=== PATIENT | female | born 1960 | race Caucasian/White ===

== ENCOUNTER 2022-11-05 11:52 | Emergency (ER) | payer OTHER ==
[2022-11-05 13:01] LABS: Absolute Lymphocytes (CBC) 2.7 K/uL (0.7-4.9); Hematocrit 39.3 % (36.0-45.0); Lymphocytes % 23.2 % (15.3-44.8); MCV 96.6 fL (80-100); MPV 7.2 fL (7.6-11.3); RBC Red Blood Cell Count 4.07 M/uL (3.86-4.86)
[2022-11-05] MEDS ORDERED: MORPHINE 4 MG/ML SYR ONE ×2 (13:01→14:05)
[2022-11-05] MEDS ORDERED: ONDANSETRON 4 MG/2 ML VIAL ONE (13:01)
[2022-11-05] MEDS ORDERED: NA CHLORIDE 0.9% 1,000 ML ONE (13:01)
[2022-11-05 13:19] LABS: AST/SGOT 13 U/L (15-37); Albumin 3.5 g/dL (3.4-5.0); Alkaline Phosphatase 99 U/L (45-117); BUN Blood Urea Nitrogen 16 mg/dL (7-18); Bicarbonate 21 mEq/L (21-32); Bilirubin Total 0.3 mg/dL (0.2-1.0); Glomerular Filtration Rate 56 ml/min (=/>90); Glucose Level 94 mg/dL (74-106); Lipase 39 U/L (13-75); Potassium 3.6 mEq/L (3.5-5.1); Protein, Total 7.6 g/dL (6.4-8.2); Sodium Level 133 mEq/L (136-145); Troponin High Sensitivity 12.3 pg/mL (<58.9)
[2022-11-05 13:21] LABS: ALT/SGPT < 10 U/L (13-56)
--- NOTE | 2022-11-05 13:53 | RAD REPORT ---
EXAM DESCRIPTION: RAD - Chest Single View - 11/05/2022 1:46 pm CLINICAL HISTORY: No comparisons COMPARISON: None. TECHNIQUE: AP portable view of the chest was obtained . FINDINGS: Lungs are clear. Heart and vasculature are normal. No sizable pleural effusion and no pneu mothorax. No gross bony abnormality seen. IMPRESSION: No acute cardiopulmonary process.
--- NOTE | 2022-11-05 14:18 | RAD REPORT ---
EXAM DESCRIPTION: CT - Abdomen Pelvis W Contrast - 11/05/2022 1:37 pm CLINICAL HISTORY: upper abd pain, vomiting, constipation COMPARISON: No comparisons TECHNIQUE: Thin cut axial CT imaging of the abdomen and pelvis was performed following intravenous a dministration of 95 mL Isovue 300. Multiplanar reformats were generated and reviewed. All CT scans are performed using dose optimization technique as appropriate and may include automated exposure control or mA/KV adjustment according to patient size. FINDINGS: Small triangular pleural-based focus of opacification along the posterior right lower lobe , could reflect atelectasis. No other suspicious findings in the lung bases. The liver, spleen, and pancreas show no suspicious findings. Gallbladder surgically removed. Common b ile duct and central intrahepatic biliary radicles are mildly patulous, which probably relates to pos tcholecystectomy status. Symmetric renal function is seen with no hydronephrosis or suspicious renal mass. No dilated bowel loops or bowel wall thickening. Colonic diverticulosis. Segmental fluid opacificatio n of small bowel loops, as well as the ascending colon, nonspecific but could relate to diarrheal sta te. No free air, free fluid or inflammatory stranding. No hernia, mass or bulky lymphadenopathy. The urinary bladder is without significant finding. No suspicious bony findings. Schmorl's node formation with mild superior endplate compression deformi ty at L1 IMPRESSION: Segmental fluid opacification of small bowel loops and the ascending colon, nonspecific, but could relate to diarrheal state. No other acute findings. Mildly patulous appearance of the common bile duct and central intrahepatic biliary radicals, could r elate to postcholecystectomy status.
[2022-11-05 14:23] LABS: Specific Gravity 1.013 (1.005-1.030); Urine Bacteria <20 /HPF (<20); Urine Bilirubin NEGATIVE (Negative); Urine Blood Negative (Negative); Urine Clarity Clear (Clear); Urine Color Light-Yellow (Yellow); Urine Glucose NEGATIVE (Negative); Urine Mucus Slight /HPF (None Seen); Urine Protein TRACE (Negative); Urine RBC <5 /HPF (None Seen); Urine Urobilinogen Normal (Normal)
--- NOTE | 2022-11-05 14:33 | ER ---
Nurse's Notes [facility] Name: Alejandra Gomez Age: 62 yrs Sex: Female : 1960 Arrival Date: 11/05/2022 Time: 11:52 Bed 18 Private MD: Diagnosis: Abdominal pain, unspecified;Nausea with vomiting, unspecified;UTI/ Urinary tract infection, site not specified Presentation: 11/05 12:36 Chief complaint: EMS states: "Abdominal pain x 7 days, vomited at 0800 x1, Last BM 5 mb9 days ago.". Coronavirus screen: Vaccine status: Patient reports receiving the 2nd dose of the covid vaccine. Ebola Screen: No symptoms or risks identified at this time. Initial Sepsis Screen: Does the patient meet any 2 criteria? HR > 90 bpm. Does the patient have a suspected source of infection? No. Patient's initial sepsis screen is negative. Risk Assessment: Do you want to hurt yourself or someone else? Patient reports no desire to harm self or others. Onset of symptoms was 2022. 12:36 Acuity: NAVARRO 3 mb9 12:36 Method Of Arrival: EMS: [facility] mb9 Historical: - Allergies: 12:37 PENICILLINS; mb9 12:37 Latex, Natural Rubber; mb9 - PMHx: 12:37 Hypertensive disorder; mb9 - PSHx: 12:37 Appendectomy; Cholecystectomy; Total abdominal hysterectomy; mb9 - Immunization history:: Adult Immunizations up to date. - Social history:: Smoking status: Patient reports the use of cigarette tobacco products, smokes one-half pack cigarettes per day. - Family history:: not pertinent. - Hospitalizations: : No recent hospitalization is reported. Screenin:03 [facility] ED Fall Risk Assessment (Adult) History of falling in the last 3 months, db including since admission No falls in past 3 months (0 pts) Confusion or Disorientation No (0 pts) Intoxicated or Sedated No (0 pts) Impaired Gait No (0 pts) Mobility Assist Device Used No (0 pt) Altered Elimination No (0 pt) Score/Fall Risk Level 0 - 2 = Low Risk Oriented to surroundings, Maintained a safe environment. Abuse screen: Denies threats or abuse. Denies injuries from another. Nutritional screening: No deficits noted. Tuberculosis screening: No symptoms or risk factors identified. Assessment: 12:58 Reassessment: Patient appears in no apparent distress at this time. Patient and/or db family updated on plan of care and expected duration. Pain level reassessed. Patient is alert, oriented x 3, equal unlabored respirations, skin warm/dry/pink. general abdominal pain x 7 days worse today. General: Appears in no apparent distress. uncomfortable, Behavior is cooperative, anxious. Pain: Complains of pain in abdomen. Neuro: Level of Consciousness is awake, alert, obeys commands, Oriented to person, place, time. GI: Bowel sounds present X 4 quads. Abd is soft. 14:02 Reassessment: patient states pain returned. Notified Dr. Berry and new order for db morphine received. patient medicated see AUG. Vital Signs: 12:36 BP 172 / 83; Pulse 98; Resp 18; Temp 98.2; Pulse Ox 100% on R/A; Weight 49.9 kg; Height mb9 4 ft. 11 in. ; 13:00 BP 172 / 83; Pulse 80; Resp 16; Pulse Ox 100% on R/A; db 13:00 BP 143 / 103; Pulse 77; Resp 16; Pulse Ox 100% on R/A; db 14:48 BP 168 / 84; Pulse 74; Resp 16; Pulse Ox 98% on R/A; mb9 12:36 Body Mass Index 22.22 (49.90 kg, 149.86 cm) mb9 ED Course: 12:23 Patient arrived in ED. kb3 12:29 Alexi Cleveland MD is Attending Physician. rn 12:36 Arm band placed on. mb9 12:37 Triage completed. mb9 12:40 Charu Soto, RN is Primary Nurse. db 12:50 Inserted saline lock: 22 gauge in right antecubital area, using aseptic technique. db Blood collected. 13:39 CT Abd/Pelvis - IV Contrast Only In Process Unspecified. EDMS 13:47 XRAY Chest (1 view) In Process Unspecified. EDMS 14:03 Patient has correct armband on for positive identification. Bed in low position. Call db light in reach. Side rails up X 1. 14:48 No provider procedures requiring assistance completed. IV discontinued, intact, mb9 bleeding controlled, No redness/swelling at site. Pressure dressing applied. Administered Medications: 12:57 Drug: NS 0.9% IV 1000 ml Route: IV; Rate: 1 bolus; Site: right antecubital; db 14:40 Follow up: Response: No adverse reaction; IV Status: Completed infusion; IV Intake: db 1000ml 12:58 Drug: Ondansetron IVP 4 mg Route: IVP; Site: right antecubital; db 14:00 Follow up: Response: No adverse reaction db 12:58 Drug: morphine IVP or IV 4 mg Route: IVP; Infused Over: 4 mins; Site: right antecubital;db 13:55 Follow up: Response: No adverse reaction db 13:58 Drug: morphine IVP or IV 4 mg Route: IVP; Infused Over: 4 mins; Site: right antecubital;db 14:48 Follow up: Response: No adverse reaction db 14:44 Drug: Ciprofloxacin PO 500 mg Route: PO; mb9 14:48 Follow up: Response: No adverse reaction db 14:44 Drug: metroNIDAZOLE PO 500 mg Route: PO; mb9 14:48 Follow up: Response: No adverse reaction db Medication: 14:44 VIS not applicable for this client. db Intake: 14:40 IV: 1000ml; Total: 1000ml. db Outcome: 14:32 Discharge ordered by . rn 14:48 Discharged to home ambulatory. mb9 14:48 Condition: stable 14:48 Discharge instructions given to patient, Instructed on discharge instructions, follow up and referral plans. Demonstrated understanding of instructions, follow-up care, medications, Prescriptions given X 3. 14:48 Patient left the ED. mb9 Signatures: Dispatcher [employer] EDMS Alexi Cleveland MD MD rn Bradberry, Kelly RN RN kb3 Charu Soto RN RN db Breneman, Mary Beth, RN RN mb9
--- NOTE | 2022-11-05 14:33 | EDPHYS ---
Physician Documentation [facility] Name: Alejandra Gomez Age: 62 yrs Sex: Female : 1960 Arrival Date: 11/05/2022 Time: 11:52 Bed 18 Private MD: ED Physician Alexi Cleveland HPI: 11/05 13:38 This 62 yrs old Female presents to ER via EMS with complaints of Abdominal Pain, rn Constipation. 13:38 The patient presents with abdominal pain that is diffuse. Onset: The symptoms/episode rn began/occurred 1 week(s) ago. The symptoms do not radiate. Associated signs and symptoms: Pertinent positives: nausea and vomiting, constipation, Pertinent negatives: blood in stools, fever. The symptoms are described as crampy. Modifying factors: The symptoms are alleviated by nothing, the symptoms are aggravated by touching the area, vomiting. Severity of pain: At its worst the pain was moderate in the emergency department the pain is unchanged. The patient has not experienced similar symptoms in the past. The patient has not recently seen a physician. Pt reports abd pain, constipation, vomiting for 1 week. Denies trauma. Reports upper abd pain and describes it to feel similar to when needed her gallbladder removed. . Historical: - Allergies: 12:37 PENICILLINS; mb9 12:37 Latex, Natural Rubber; mb9 - PMHx: 12:37 Hypertensive disorder; mb9 - PSHx: 12:37 Appendectomy; Cholecystectomy; Total abdominal hysterectomy; mb9 - Immunization history:: Adult Immunizations up to date. - Social history:: Smoking status: Patient reports the use of cigarette tobacco products, smokes one-half pack cigarettes per day. - Family history:: not pertinent. - Hospitalizations: : No recent hospitalization is reported. ROS: 13:38 Constitutional: Negative for fever, chills, and weight loss, Neck: Negative for injury, rn pain, and swelling, Cardiovascular: Negative for chest pain, palpitations, and edema, Respiratory: Negative for shortness of breath, cough, wheezing, and pleuritic chest pain, Abdomen/GI: Negative for diarrhea Back: Negative for injury and pain, MS/Extremity: Negative for injury and deformity, Skin: Negative for injury, rash, and discoloration, Neuro: Negative for headache, weakness, numbness, tingling, and seizure. Exam: 13:38 Constitutional: This is a well developed, well nourished patient who is awake, alert, rn appears uncomfortable Cardiovascular: Regular rate and rhythm. No pulse deficits. Respiratory: No increased work of breathing, no retractions or nasal flaring. Abdomen/GI: soft, + mid abd tenderness, no distension Skin: Warm, dry MS/ Extremity: Pulses equal, no cyanosis. Neuro: Awake and alert, GCS 15 13:47 ECG was reviewed by the Attending Physician. rn Vital Signs: 12:36 BP 172 / 83; Pulse 98; Resp 18; Temp 98.2; Pulse Ox 100% on R/A; Weight 49.9 kg; Height mb9 4 ft. 11 in. ; 13:00 BP 172 / 83; Pulse 80; Resp 16; Pulse Ox 100% on R/A; db 13:00 BP 143 / 103; Pulse 77; Resp 16; Pulse Ox 100% on R/A; db 14:48 BP 168 / 84; Pulse 74; Resp 16; Pulse Ox 98% on R/A; mb9 12:36 Body Mass Index 22.22 (49.90 kg, 149.86 cm) mb9 MDM: 12:29 Patient medically screened. rn 14:25 Differential diagnosis: bowel obstruction, diverticulitis, gastritis, non-specific abd rn pain, pancreatitis, Pyelonephritis, Ureterolithiasis, urinary tract infection. Data reviewed: vital signs, nurses notes, lab test result(s), radiologic studies, CT scan, and as a result, I will discharge patient. Counseling: I had a detailed discussion with the patient and/or guardian regarding: the historical points, exam findings, and any diagnostic results supporting the discharge/admit diagnosis, lab results, radiology results, the need for outpatient follow up, to return to the emergency department if symptoms worsen or persist or if there are any questions or concerns that arise at home. 14:32 Special discussion: I discussed with the patient/guardian in detail that at this point rn there is no indication for admission to the hospital. It is understood, however, that if the symptoms persist or worsen the patient needs to return immediately for re-evaluation. 11/05 12:34 Order name: CBC with Diff; Complete Time: 13:38 rn 11/05 12:34 Order name: CMP; Complete Time: 13:38 rn 11/05 12:34 Order name: Lipase; Complete Time: 13:38 rn 11/05 12:34 Order name: Urinalysis w/ reflexes; Complete Time: 14:24 rn 11/05 12:34 Order name: Flu; Complete Time: 13:38 rn 11/05 12:34 Order name: Troponin High Sensitivity; Complete Time: 13:38 rn 11/05 12:34 Order name: CT Abd/Pelvis - IV Contrast Only; Complete Time: 14:19 rn 11/05 12:34 Order name: XRAY Chest (1 view); Complete Time: 13:57 rn 11/05 12:34 Order name: EKG; Complete Time: 12:35 rn 11/05 12:34 Order name: IV Saline Lock; Complete Time: 12:58 rn 11/05 12:34 Order name: Labs collected and sent; Complete Time: 12:58 rn 11/05 12:34 Order name: EKG - Nurse/Tech; Complete Time: 13:28 rn EC:47 Rate is 69 beats/min. Rhythm is regular. QRS [place] is Normal. [place] interval is normal. QRS rn interval is normal. QT interval is normal. No Q waves. T waves are Normal. No ST changes noted. Clinical impression: Normal ECG. Interpreted by me. Reviewed by me. Administered Medications: 12:57 Drug: NS 0.9% IV 1000 ml Route: IV; Rate: 1 bolus; Site: right antecubital; db 14:40 Follow up: Response: No adverse reaction; IV Status: Completed infusion; IV Intake: db 1000ml 12:58 Drug: Ondansetron IVP 4 mg Route: IVP; Site: right antecubital; db 14:00 Follow up: Response: No adverse reaction db 12:58 Drug: morphine IVP or IV 4 mg Route: IVP; Infused Over: 4 mins; Site: right antecubital;db 13:55 Follow up: Response: No adverse reaction db 13:58 Drug: morphine IVP or IV 4 mg Route: IVP; Infused Over: 4 mins; Site: right antecubital;db 14:48 Follow up: Response: No adverse reaction db 14:44 Drug: Ciprofloxacin PO 500 mg Route: PO; mb9 14:48 Follow up: Response: No adverse reaction db 14:44 Drug: metroNIDAZOLE PO 500 mg Route: PO; mb9 14:48 Follow up: Response: No adverse reaction db Disposition Summary: 11/05/22 14:32 Discharge Ordered Location: Home rn Problem: new rn Symptoms: have improved rn Condition: Stable rn Diagnosis - Abdominal pain, unspecified rn - Nausea with vomiting, unspecified rn - UTI/ Urinary tract infection, site not specified rn Followup: rn - With: Private Physician - When: As needed - Reason: Recheck today's complaints, Re-evaluation by your physician Discharge Instructions: - Discharge Summary Sheet rn - Abdominal Pain, Adult rn - Nausea and Vomiting, Adult rn - Urinary Tract Infection, Adult rn Forms: - Medication Reconciliation Form rn - Thank You Letter rn - Antibiotic carnival worker - Prescription Opioid Use rn Prescriptions: - ondansetron 4 mg Oral Tablet,disintegrating - take 1 tablet by ORAL route every 8-10 hours As needed as needed for nausea and rn vomiting; 15 tablet; Refills: 0, Product Selection Permitted - Flagyl 500 mg Oral Tablet - take 1 tablet by ORAL route every 8 hours for 10 days; 30 tablet; Refills: 0, rn Product Selection Permitted - Cipro 500 mg Oral Tablet - take 1 tablet by ORAL route every 12 hours for 10 days; 20 tablet; Refills: 0, rn Product Selection Permitted Signatures: Dispatcher [employer] EDAlexi Herrmann MD MD rn Benton, Danielle RN RN Lynda King RN RN mb9
[2022-11-05] MEDS ORDERED: metroNIDAZOLE 500 MG TABLET ONE (14:48)
[2022-11-05] MEDS ORDERED: CIPROFLOXACIN HCL 500 MG TAB ONE (14:49)
[2022-11-05 15:17] VITALS: TEMP 98.2
[2022-11-05 15:21] VITALS: BP 168/84; O2SAT 98
--- NOTE | 2022-11-07 07:30 | EKG ---
Test Date: 2022-11-05 Test Time: 13:07:52 Bioinformatician: KSENIA MEASUREMENT RESULTS: Intervals: Rate: 69 NM: 146 QRSD: 84 QT: 400 QTc: 428 [place]: P: 42 NM: 146 QRS: -32 T: 55 INTERPRETIVE STATEMENTS: Normal sinus rhythm Left axis deviation Abnormal ECG No previous ECG available for comparison Electronically Signed On 11-07-22 07:25:43 CDT by Edward Hidalgo
== END 2022-11-05 14:48 | disposition home or self-care (01) ==
LOC: EDBD 11:52 → ER 11:52
DX: N39.0 Urinary tract infection, site not specified (principal); R11.2 Nausea with vomiting, unspecified; I10 Essential (primary) hypertension; F17.210 Nicotine dependence, cigarettes, uncomplicated; Z88.0 Allergy status to penicillin; Z91.040 Latex allergy status; Z91.048 Other nonmedicinal substance allergy status
CPT/HCPCS: 96361; 93005; 85025; 81001; 36415; 84484; 83690; 80053; 87804 ×2; 74177; 71045; 96375; 96374; 99284; Q9967; J2405; J7030

== ENCOUNTER 2022-11-21 09:59 | Emergency (ER) | payer OTHER ==
--- OUTSIDE RECORDS SUMMARY | 2022-11-21 10:02 | XMS REPORT | Continuity of Care Document ---
:1960 Author Organization [facility] t Address [address] [facility]. [address] [place] [address] Care Team Providers Name Role Phone Unavailable Unavailable Unavailable Problems This patient has no known problems. Allergies, Adverse Reactions, Alerts This patient has no known allergies or adverse reactions. Medications This patient has no known medications. Procedures This patient has no known procedures. Encounters Start End Encounter Admission Attending Care Care Encounter Source Date/Time Date/Time Type Type Clinicians Facility Department ID 2022-07-14 2022-07-14 Outpatient [facility] [id number] 11:08:15 11:08:15 [id number] [facility] 2022-04-20 2022-04-20 Outpatient [facility] [id number] [place] 10:40:09 10:40:09 [id number] [facility] 2022-04-16 2022-04-16 Outpatient [facility] [id number] [place] 11:44:55 11:44:55 [id number] [facility] 2022-03-31 2022-03-31 Outpatient [facility] [id number] 15:17:51 15:17:51 [facility] Results Test Description Test Time Test Comments Results Result Comments Source OCCULT BLD,FECAL,IMMUNOASSAY DIAG 2022-07-23 11:08:20 Test Item Value Reference Range Interpretation Comme nts OCCULT BLD, FECAL (test NEGATIVE NEGATIVE [facility] has important pathology staff code = 03615) changes effect clay 08/11/2022. New pathology staff will provide uninterrupted, excellent patient care and clinical co nsultation. See URL: [email or web address]. UNLESS OTHERWISE INDIC ATED, [facility] [address], [place] CLIA: [id number], CAP: [id number]
[2022-11-21] MEDS ORDERED: ONDANSETRON 4 MG/2 ML VIAL ONE (10:25)
[2022-11-21] MEDS ORDERED: MORPHINE 4 MG/ML SYR ONE ×2 (10:25→11:19)
[2022-11-21] MEDS ORDERED: NA CHLORIDE 0.9% 1,000 ML ONE (10:25)
[2022-11-21] MEDS ORDERED: FAMOTIDINE 20 MG/2 ML VIAL IV ONE (10:25)
[2022-11-21 10:37] LABS: Absolute Lymphocytes (CBC) 3.2 K/uL (0.7-4.9); Hematocrit 39.4 % (36.0-45.0); Lymphocytes % 29.3 % (15.3-44.8); MCV 96.9 fL (80-100); MPV 7.5 fL (7.6-11.3); RBC Red Blood Cell Count 4.07 M/uL (3.86-4.86)
[2022-11-21 10:41] LABS: Specific Gravity 1.025 (1.005-1.030); Urine Bacteria 20-50 /HPF (<20); Urine Bilirubin NEGATIVE (Negative); Urine Blood Negative (Negative); Urine Clarity Extremely Turbid (Clear); Urine Color Yellow (Yellow); Urine Glucose NEGATIVE (Negative); Urine Protein 2+ (Negative); Urine RBC <5 /HPF (None Seen); Urine Urobilinogen 1+ (Normal)
[2022-11-21 10:54] LABS: AST/SGOT 16 U/L (15-37); Albumin 3.6 g/dL (3.4-5.0); Alkaline Phosphatase 101 U/L (45-117); BUN Blood Urea Nitrogen 19 mg/dL (7-18); Bicarbonate 23 mEq/L (21-32); Bilirubin Total 0.4 mg/dL (0.2-1.0); Glomerular Filtration Rate 50 ml/min (=/>90); Glucose Level 103 mg/dL (74-106); Lipase 41 U/L (13-75); Potassium 3.3 mEq/L (3.5-5.1); Protein, Total 7.7 g/dL (6.4-8.2); Sodium Level 138 mEq/L (136-145)
[2022-11-21 10:55] LABS: ALT/SGPT < 10 U/L (13-56)
--- NOTE | 2022-11-21 11:35 | RAD REPORT ---
EXAM DESCRIPTION: CT - Abdomen Pelvis W Contrast - 11/21/2022 11:08 am CLINICAL HISTORY: Abdominal pain COMPARISON: November 05, 2022 TECHNIQUE: Computed axial tomography of the abdomen pelvis was obtained. 95 cc Isovue-300 was admini stered intravenously. Oral contrast was not requested which limits evaluation of bowel and appendix All CT scans are performed using dose optimization technique as appropriate and may include automated exposure control or mA/KV adjustment according to patient size. FINDINGS: Cholecystectomy. Mild dilatation extrahepatic biliary tree. Liver otherwise unremarkable. Spleen, pancreas, adrenals and kidneys unremarkable There is no evidence of diverticulitis. Hysterectomy. No adnexal mass. Moderate amount of stool within the colon Atherosclerosis Apparent thickening of the wall of distal stomach IMPRESSION: Apparent thickening of the wall of the distal stomach probably related to inflammation. Neoplasm can have this appearance but is probably less likely. Moderate amount stool within the colon Mild prominence of the biliary tree probably physiologic in this patient status post cholecystectomy. Pathology can also result in this appearance and should be correlated clinically and with appropriat e lab values.
--- NOTE | 2022-11-21 12:33 | ER ---
Nurse's Notes [facility] Name: Cuco Gomez Age: 62 yrs Sex: Female : 1960 Arrival Date: 11/21/2022 Time: 09:59 Bed 15 Private MD: Diagnosis: Upper abdominal pain, unspecified;Acute gastritis without bleeding Presentation: 11/21 10:09 Chief complaint: Patient states: was seen here on November 05 for abd pain , was prescribed iw antibiotics, got better then started having pain again last week , also still feeling queasy, no vomiting. Coronavirus screen: At this time, the client does not indicate any symptoms associated with coronavirus-19. Ebola Screen: Patient negative for fever greater than or equal to 101.5 degrees Fahrenheit, and additional compatible Ebola Virus Disease symptoms Patient denies exposure to infectious person. Patient denies travel to an Ebola-affected area in the 21 days before illness onset. No symptoms or risks identified at this time. Initial Sepsis Screen: Does the patient meet any 2 criteria? No. Patient's initial sepsis screen is negative. Does the patient have a suspected source of infection? No. Patient's initial sepsis screen is negative. Risk Assessment: Do you want to hurt yourself or someone else? Patient reports no desire to harm self or others. Onset of symptoms was November 14, 2022. 10:09 Acuity: NAVARRO 3 iw 10:09 Method Of Arrival: Ambulatory iw Triage Assessment: 10:12 General: Appears in no apparent distress. Behavior is cooperative, appropriate for age, bp anxious. Pain: Complains of pain in abdomen. EENT: No deficits noted. Neuro: No deficits noted. Cardiovascular: No deficits noted. Respiratory: No deficits noted. GI: Reports nausea. : No signs and/or symptoms were reported regarding the genitourinary system. Derm: No deficits noted. Musculoskeletal: No deficits noted. Historical: - Allergies: 10:11 Latex, Natural Rubber; iw 10:11 PENICILLINS; iw 10:11 Tetanus Vaccines \T\ Toxoid; iw - Home Meds: 10:11 Atenolol Oral [Active]; Lisinopril Oral [Active]; iw - PMHx: 10:11 Hypertensive disorder; iw - PSHx: 10:12 Cholecystectomy; Appendectomy; Total abdominal hysterectomy; iw - Social history:: Smoking status: unknown. - Family history:: not pertinent. - Hospitalizations: : No recent hospitalization is reported. Screenin:13 [facility] ED Fall Risk Assessment (Adult) History of falling in the last 3 months, bp including since admission No falls in past 3 months (0 pts). Abuse screen: Denies threats or abuse. Denies injuries from another. Nutritional screening: No deficits noted. Tuberculosis screening: No symptoms or risk factors identified. Assessment: 10:13 General: SEE TRIAGE NOTE. bp 11:39 Reassessment: No changes from previously documented assessment. Patient is alert, bp oriented x 3, equal unlabored respirations, skin warm/dry/pink. 12:36 Reassessment: PT DC HOME. bp Vital Signs: 10:09 BP 147 / 94; Pulse 108; Resp 18; Temp 98.1; Pulse Ox 100% on R/A; iw 11:40 BP 168 / 92; Pulse 78; Resp 16; Pulse Ox 98% ; bp 12:35 BP 162 / 86; Pulse 75; Resp 16; Pulse Ox 100% ; bp ED Course: 10:00 Patient arrived in ED. im 10:03 Alexi Cleveland MD is Attending Physician. rn 10:11 Triage completed. iw 10:12 Zhou Ch, RN is Primary Nurse. bp 10:12 Arm band placed on. iw 10:13 Patient has correct armband on for positive identification. Bed in low position. Call bp light in reach. Side rails up X2. 10:24 Warm blanket given. Pulse ox on. NIBP on. mm9 10:24 Urine collected: clean catch specimen, cloudy. mm9 10:32 Inserted saline lock: 22 gauge in right antecubital area, using aseptic technique. bp Blood collected. 11:10 CT Abd/Pelvis - IV Contrast Only In Process Unspecified. EDMS 12:33 Rey Panchal MD is Referral Physician. rn 12:36 No provider procedures requiring assistance completed. IV discontinued, intact, bp bleeding controlled, No redness/swelling at site. Pressure dressing applied. Administered Medications: 10:32 Drug: NS 0.9% IV 1000 ml Route: IV; Rate: 1 bolus; Site: right antecubital; bp 12:36 Follow up: IV Status: Completed infusion; IV Intake: 100ml bp 10:32 Drug: Famotidine IVP 20 mg Route: IVP; Site: right antecubital; bp 12:08 Follow up: Response: No adverse reaction bp 10:32 Drug: Ondansetron IVP 4 mg Route: IVP; Site: right antecubital; bp 12:08 Follow up: Response: No adverse reaction bp 10:32 Drug: morphine IVP or IV 4 mg Route: IVP; Infused Over: 4 mins; Site: right antecubital;bp 12:08 Follow up: Response: No adverse reaction bp 11:18 Drug: morphine IVP or IV 4 mg Route: IVP; Infused Over: 4 mins; Site: right antecubital;bp 12:08 Follow up: Response: No adverse reaction bp 12:15 Drug: GI Cocktail without - (Maalox PO Suspension 30 ml, Lidocaine Mucous bp Membrane Liquid 2 % 15 ml) Route: PO; 12:35 Follow up: Response: No adverse reaction bp Medication: 10:13 VIS not applicable for this client. bp Intake: 12:36 IV: 100ml; Total: 100ml. bp Outcome: 12:33 Discharge ordered by . rn 12:36 Discharged to home ambulatory. bp 12:36 Condition: stable 12:36 Discharge instructions given to patient, Instructed on discharge instructions, follow up and referral plans. medication usage, Demonstrated understanding of instructions, follow-up care, medications, Prescriptions given X 2. 12:49 Patient left the ED. bp Signatures: Dispatcher [employer] Glendy Cummins RN RN iw Nieto, Roman, MD MD rn Peltier, Brian, RN RN bp Martinez, Maria Federica Melgar
--- NOTE | 2022-11-21 12:34 | EDPHYS ---
Physician Documentation [facility] Name: Cuco Gomez Age: 62 yrs Sex: Female : 1960 Arrival Date: 11/21/2022 Time: 09:59 Bed 15 Private MD: ED Physician Alexi Cleveland HPI: 11/21 10:24 This 62 yrs old Female presents to ER via Ambulatory with complaints of Abdominal Pain. rn 10:24 The patient presents with abdominal pain in the epigastric area, in the upper abdomen. rn Onset: The symptoms/episode began/occurred 2 week(s) ago. The symptoms radiate to. Associated signs and symptoms: Pertinent positives: nausea and vomiting, constipation, Pertinent negatives: fever, shortness of breath. The symptoms are described as crampy, intermittent. Modifying factors: The symptoms are alleviated by nothing, the symptoms are aggravated by touching the area. Severity of pain: At its worst the pain was moderate in the emergency department the pain is unchanged. The patient has not experienced similar symptoms in the past. The patient has been recently seen at the [facility] Emergency Department. Pt reports abdominal pain, seen here 2 weeks ago, improved with abx, but now abd pain worsened over last 2 days. + nausea and constipation. . Historical: - Allergies: 10:11 Latex, Natural Rubber; iw 10:11 PENICILLINS; iw 10:11 Tetanus Vaccines \T\ Toxoid; iw - Home Meds: 10:11 Atenolol Oral [Active]; Lisinopril Oral [Active]; iw - PMHx: 10:11 Hypertensive disorder; iw - PSHx: 10:12 Cholecystectomy; Appendectomy; Total abdominal hysterectomy; iw - Social history:: Smoking status: unknown. - Family history:: not pertinent. - Hospitalizations: : No recent hospitalization is reported. ROS: 10:24 Constitutional: Negative for fever, chills, and weight loss, Eyes: Negative for injury, rn pain, redness, and discharge, Cardiovascular: Negative for chest pain, palpitations, and edema, Respiratory: Negative for shortness of breath, cough, wheezing, and pleuritic chest pain, Abdomen/GI: + upper abd pain, + nausea/constipation MS/Extremity: Negative for injury and deformity, Skin: Negative for injury, rash, and discoloration, Neuro: Negative for headache, weakness, numbness, tingling, and seizure. Exam: 10:24 Constitutional: This is a well developed, well nourished patient who is awake, alert, rn appears uncomfortable Head/Face: Normocephalic, atraumatic. ENT: dry MM Cardiovascular: Tachycardic, regular. No pulse deficits. Respiratory: No increased work of breathing, no retractions or nasal flaring. Abdomen/GI: soft, + upper abd tenderness Skin: Warm, dry MS/ Extremity: Pulses equal, no cyanosis. Neuro: Awake and alert, GCS 15 Vital Signs: 10:09 BP 147 / 94; Pulse 108; Resp 18; Temp 98.1; Pulse Ox 100% on R/A; iw 11:40 BP 168 / 92; Pulse 78; Resp 16; Pulse Ox 98% ; bp 12:35 BP 162 / 86; Pulse 75; Resp 16; Pulse Ox 100% ; bp MDM: 10:03 Patient medically screened. rn 12:31 Differential diagnosis: gastritis, gastroesophageal reflux disease. rn 12:32 Data reviewed: vital signs, nurses notes, lab test result(s), radiologic studies, CT rn scan, and as a result, I will discharge patient. Counseling: I had a detailed discussion with the patient and/or guardian regarding: the historical points, exam findings, and any diagnostic results supporting the discharge/admit diagnosis, lab results, radiology results, the need for outpatient follow up, to return to the emergency department if symptoms worsen or persist or if there are any questions or concerns that arise at home. Response to treatment: the patient's symptoms have markedly improved after treatment, and as a result, I will discharge patient. Special discussion: I discussed with the patient/guardian in detail that at this point there is no indication for admission to the hospital. It is understood, however, that if the symptoms persist or worsen the patient needs to return immediately for re-evaluation. Based on the history and exam findings, there is no indication for further emergent testing or inpatient evaluation. I discussed with the patient/guardian the need to see the dentist for further evaluation of the symptoms. I discussed with the patient/guardian the need to see the primary care provider for further evaluation of the symptoms. 11/21 10:13 Order name: CBC with Diff; Complete Time: 11:03 rn 11/21 10:13 Order name: CMP; Complete Time: 11:03 rn 11/21 10:13 Order name: Lipase; Complete Time: 11:03 rn 11/21 10:13 Order name: Urinalysis w/ reflexes; Complete Time: 11:03 rn 11/21 10:13 Order name: CT Abd/Pelvis - IV Contrast Only; Complete Time: 12:04 rn 11/21 10:13 Order name: IV Saline Lock; Complete Time: 10:32 rn 11/21 10:13 Order name: Labs collected and sent; Complete Time: 10:32 rn Administered Medications: 10:32 Drug: NS 0.9% IV 1000 ml Route: IV; Rate: 1 bolus; Site: right antecubital; bp 12:36 Follow up: IV Status: Completed infusion; IV Intake: 100ml bp 10:32 Drug: Famotidine IVP 20 mg Route: IVP; Site: right antecubital; bp 12:08 Follow up: Response: No adverse reaction bp 10:32 Drug: Ondansetron IVP 4 mg Route: IVP; Site: right antecubital; bp 12:08 Follow up: Response: No adverse reaction bp 10:32 Drug: morphine IVP or IV 4 mg Route: IVP; Infused Over: 4 mins; Site: right antecubital;bp 12:08 Follow up: Response: No adverse reaction bp 11:18 Drug: morphine IVP or IV 4 mg Route: IVP; Infused Over: 4 mins; Site: right antecubital;bp 12:08 Follow up: Response: No adverse reaction bp 12:15 Drug: GI Cocktail without - (Maalox PO Suspension 30 ml, Lidocaine Mucous bp Membrane Liquid 2 % 15 ml) Route: PO; 12:35 Follow up: Response: No adverse reaction bp Disposition Summary: 11/21/22 12:33 Discharge Ordered Location: Home rn Problem: an ongoing problem rn Symptoms: have improved rn Condition: Stable rn Diagnosis - Upper abdominal pain, unspecified rn - Acute gastritis without bleeding rn Followup: rn - With: Rey Panchal MD - When: As needed - Reason: Recheck today's complaints, Re-evaluation by your physician Discharge Instructions: - Discharge Summary Sheet rn - Abdominal Pain, Adult rn - Gastritis, Adult rn Forms: - Medication Reconciliation Form rn - Thank You Letter rn - Antibiotic rn documentation - Prescription Opioid Use rn Prescriptions: - Protonix 40 mg Oral Tablet - take 1 tablet by ORAL route once daily; 30 tablet; Refills: 0, Product rn Selection Permitted - Tramadol 50 mg Oral Tablet - take 1 tablet by ORAL route every 8 hours as needed; 12 tablet; Refills: 0, rn Product Selection Permitted Signatures: Dispatcher [employer] Glendy Cummins, Alexi Rowe RN, MD MD rn Peltier, Brian, RN RN bp
[2022-11-21] MEDS ORDERED: LIDOCAINE VISCOUS 2% SOLN 15 ML UDC ONE (12:40)
[2022-11-21] MEDS ORDERED: MAGNES/ALUMIN/SIMET 30ML UCUP ONE (12:40)
[2022-11-21 13:13] VITALS: TEMP 98.1
[2022-11-21 13:29] VITALS: BP 162/86; O2SAT 100
== END 2022-11-21 12:49 | disposition home or self-care (01) ==
LOC: ER 09:59
DX: K29.00 Acute gastritis without bleeding (principal); I10 Essential (primary) hypertension; Z88.0 Allergy status to penicillin; Z88.7 Allergy status to serum and vaccine; Z91.040 Latex allergy status
CPT/HCPCS: 96361; 85025; 81001; 36415; 83690; 80053; 74177; 96375; 96374; 99284; Q9966; J2405; J7030

== ENCOUNTER 2023-02-05 18:06 | Emergency (ER) | payer OTHER ==
--- OUTSIDE RECORDS SUMMARY | 2023-02-05 18:09 | XMS REPORT | Continuity of Care Document ---
:1960 Author Organization [facility] t Address [address] [place] [address] [place] [id number] Care Team Providers Name Role Phone Roberto Attending Clinician Unavailable JOSE ADEN Attending Clinician Unavailable Roberto Admitting Clinician Unavailable Payers Payer Name Policy Type Policy Number Effective Date Expiration Date [facility] [id number] [place] [place] Problems Condition Condition Condition Status Onset Resolution Last Treating Co mments Source Name Details Category Date Date Treatment Clinician Date Hypertensi Hypertensi Problem Active [facility] disorder Disorder [facility] Allergies, Adverse Reactions, Alerts Allergy Allergy Status Severity Reaction(s) Onset Inactive Treating Comm ents Source Name Type Date Date Clinician Latex Allergy Active [place] [facility]stanc [facility] PENICILL Allergy Active [place] INS to da substanc [facility] TETANUS Allergy Active [place] VACCINES to da AND substanc [facility] TOXOID e [facility] Social History Smoking Status Start Date Stop Date Source Former Smoker [facility] Medications Ordered Filled Start Stop Current Ordering Indication Dosage Frequency Signature Comments Components Source Medication Medication Date Date Medication? Clinician (SIG) Name Name atenolol 50 atenolol 50 No atenolol [place] mg tablet mg tablet 50 mg da TAKE 1 TAKE 1 tablet [facility] TABLET BY TABLET BY TAKE 1 al MOUTH DAILY MOUTH DAILY TABLET BY Health MOUTH Outreac DAILY h Program atorvastati atorvastati No atorvastat [place] n 40 mg n 40 mg in 40 mg da tablet TAKE tablet TAKE tablet [facility] 1 TABLET BY 1 TABLET BY TAKE 1 al MOUTH AT MOUTH AT TABLET BY He alth BEDTIME BEDTIME MOUTH AT Outre ac BEDTIME h Program duloxetine duloxetine No duloxetine [place] 60 mg 60 mg 60 mg da capsule,del capsule,del capsule,de [facility] ayed ayed layed al release release release Health TAKE ONE TAKE ONE TAKE ONE Out reac CAPSULE BY CAPSULE BY CAPSULE BY h MOUTH EVERY MOUTH EVERY MOUTH Program DAY DAY EVERY DAY ergocalcife ergocalcife No ergocalcif [place] rol rol dylan da (vitamin (vitamin (vitamin Epi scop D2) 1,250 D2) 1,250 D2) 1,250 al mcg (50,000 mcg (50,000 mcg H ealth unit) unit) (50,000 Outreac capsule capsule unit) h TAKE 1 TAKE 1 capsule Program CAPSULE BY CAPSULE BY TAKE 1 MOUTH ONCE MOUTH ONCE CAPSULE BY A WEEK A WEEK MOUTH ONCE A WEEK gabapentin gabapentin No gabapentin [place] 300 mg 300 mg 300 mg da capsule capsule capsule [facility] p TAKE 1 TAKE 1 TAKE 1 al CAPSULE BY CAPSULE BY CAPSULE BY Health MOUTH THREE MOUTH THREE MOUTH Outreac TIMES DAILY TIMES DAILY THREE h TIMES Program DAILY GaviLyte-G GaviLyte-G No 2000mL BID GaviLyte-G [place] 236 236 236 da gram-22.74 gram-22.74 gram-22.74 [facility] gram-6.74 gram-6.74 gram-6.74 al gram-5.86 gram-5.86 gram-5.86 Health gram oral gram oral gram oral Outreac solution solution solution h Take 2000 Take 2000 Take 2000 Program mL twice a mL twice a mL twice a day by oral day by oral day by route for 1 route for 1 oral route day. day. for 1 day. hydroxyzine hydroxyzine No hydroxyzin [place] HCl 25 mg HCl 25 mg e HCl 25 d a tablet TAKE tablet TAKE mg tablet [facility] 1 TO 2 1 TO 2 TAKE 1 TO al TABLETS BY TABLETS BY 2 TABLETS Health MOUTH AT MOUTH AT BY MOUTH Out reac BEDTIME BEDTIME AT BEDTIME h NEEDED FOR NEEDED FOR NEEDED Program SLEEP SLEEP FOR SLEEP lisinopril lisinopril No lisinopril [place] 20 20 20 da mg-hydrochl mg-hydrochl mg-hydroch [facility] orothiazide orothiazide lorothiazi al 12.5 mg 12.5 mg de 12.5 mg Hea lth tablet TAKE tablet TAKE tablet Outreac 1 TABLET BY 1 TABLET BY TAKE 1 h MOUTH ONCE MOUTH ONCE TABLET BY Program DAILY DAILY MOUTH ONCE DAILY pantoprazol pantoprazol No pantoprazo [place] e 40 mg e 40 mg le 40 mg da tablet,elisa tablet,elisa tablet,del [facility] yed release yed release ayed a l TAKE 1 TAKE 1 release Health TABLET BY TABLET BY TAKE 1 Out reac MOUTH ONCE MOUTH ONCE TABLET BY h DAILY DAILY MOUTH ONCE Program DAILY tramadol 50 tramadol 50 No tramadol [place] mg tablet mg tablet 50 mg da TAKE 1 TAKE 1 tablet [facility] TABLET BY TABLET BY TAKE 1 al MOUTH EVERY MOUTH EVERY TABLET BY Health 8 HOURS 8 HOURS MOUTH Ou treac NEEDED NEEDED EVERY 8 h HOURS Program NEEDED atenolol 50 atenolol 50 No atenolol [place] mg tablet mg tablet 50 mg da TAKE 1 TAKE 1 tablet [facility] TABLET BY TABLET BY TAKE 1 al MOUTH DAILY MOUTH DAILY TABLET BY Health MOUTH Outreac DAILY h Program atorvastati atorvastati No atorvastat [place] n 40 mg n 40 mg in 40 mg da tablet TAKE tablet TAKE tablet [facility] 1 TABLET BY 1 TABLET BY TAKE 1 al MOUTH AT MOUTH AT TABLET BY He alth BEDTIME BEDTIME MOUTH AT Outre ac BEDTIME h Program duloxetine duloxetine No duloxetine [place] 60 mg 60 mg 60 mg da capsule,del capsule,del capsule,de [facility] ayed ayed layed al release release release Health TAKE ONE TAKE ONE TAKE ONE Out reac CAPSULE BY CAPSULE BY CAPSULE BY h MOUTH EVERY MOUTH EVERY MOUTH Program DAY DAY EVERY DAY ergocalcife ergocalcife No ergocalcif [place] rol rol dylan da (vitamin (vitamin (vitamin Epi scop D2) 1,250 D2) 1,250 D2) 1,250 al mcg (50,000 mcg (50,000 mcg H ealth unit) unit) (50,000 Outreac capsule capsule unit) h TAKE 1 TAKE 1 capsule Program CAPSULE BY CAPSULE BY TAKE 1 MOUTH ONCE MOUTH ONCE CAPSULE BY A WEEK A WEEK MOUTH ONCE A WEEK gabapentin gabapentin No gabapentin [place] 300 mg 300 mg 300 mg da capsule capsule capsule [facility] p TAKE 1 TAKE 1 TAKE 1 al CAPSULE BY CAPSULE BY CAPSULE BY Health MOUTH THREE MOUTH THREE MOUTH Outreac TIMES DAILY TIMES DAILY THREE h TIMES Program DAILY GaviLyte-G GaviLyte-G No GaviLyte-G [place] 236 236 236 da gram-22.74 gram-22.74 gram-22.74 [facility] gram-6.74 gram-6.74 gram-6.74 al gram-5.86 gram-5.86 gram-5.86 Health gram oral gram oral gram oral [facility]re[facility] solution solution solution h TAKE 2000ML TAKE 2000ML TAKE P rogram BY MOUTH BY MOUTH 2000ML BY TWICE DAILY TWICE DAILY MOUTH FOR 1 DAY FOR 1 DAY TWICE DAILY FOR 1 DAY hydroxyzine hydroxyzine No hydroxyzin [place] HCl 25 mg HCl 25 mg e HCl 25 d a tablet TAKE tablet TAKE mg tablet [facility] 1 TO 2 1 TO 2 TAKE 1 TO al TABLETS BY TABLETS BY 2 TABLETS Health MOUTH AT MOUTH AT BY MOUTH Out reac BEDTIME BEDTIME AT BEDTIME h NEEDED FOR NEEDED FOR NEEDED Program SLEEP SLEEP FOR SLEEP lisinopril lisinopril No lisinopril [place] 20 20 20 da mg-hydrochl mg-hydrochl mg-hydroch [facility] orothiazide orothiazide lorothiazi al 12.5 mg 12.5 mg de 12.5 mg Hea lth tablet TAKE tablet TAKE tablet Outre[facility] 1 TABLET BY 1 TABLET BY TAKE 1 h MOUTH ONCE MOUTH ONCE TABLET BY Program DAILY DAILY MOUTH ONCE DAILY pantoprazol pantoprazol No pantoprazo [place] e 40 mg e 40 mg le 40 mg da tablet,elisa tablet,elisa tablet,del [facility] yed release yed release ayed a l TAKE 1 TAKE 1 release Health TABLET BY TABLET BY TAKE 1 Out reac MOUTH ONCE MOUTH ONCE TABLET BY h DAILY DAILY MOUTH ONCE Program DAILY tramadol 50 tramadol 50 No tramadol [place] mg tablet mg tablet 50 mg da TAKE 1 TAKE 1 tablet [facility] TABLET BY TABLET BY TAKE 1 al MOUTH EVERY MOUTH EVERY TABLET BY Health 8 HOURS 8 HOURS MOUTH Ou treac NEEDED NEEDED EVERY 8 h HOURS Program NEEDED Vital Signs Vital Name Observation Time Observation Value Comments Source BP Diastolic 2022-12-06 00:00:00 74 mm[Hg] Dora burns [facility] Height 2022-12-06 00:00:00 62 [in_i] Dora burns [facility] BMI (Body Mass 2022-12-06 00:00:00 17.9 kg/m2 [employer] [facility]) [facility] BP Systolic 2022-12-06 00:00:00 113 mm[Hg] Dora burns [facility] Body Weight 2022-12-06 00:00:00 97.6 [lb_av] Dora burns [facility] Procedures Procedure Date / Time Performed Performing Clinician Sourc e Cataract Surgery [facility] Procedure on Hand [facility] Hysterectomy [facility] Appendectomy [facility] Cholecystectomy [facility] Encounters Start End Encounter Admission Attending Care Care Encounter Source Date/Time Date/Time Type Type Clinicians Facility Department ID 2023-01-30 2023-01-30 Outpatient [facility] 124 [place] 00:00:00 00:00:00 bin [id number] [facility] 2023-01-07 2023-01-07 Outpatient [facility] 124 [place] 00:00:00 00:00:00 bin [id number] [facility] 2023-01-03 2023-01-03 Outpatient [facility] 124 [place] 00:00:00 00:00:00 bin [id number] [facility] 2022-12-27 2022-12-27 [facility] [id number] [place] 11:47:00 11:47:00 JOSE [id number] [facility] 2022-12-10 2022-12-10 Outpatient [facility] 124 [place] 00:00:00 00:00:00 bin [id number] [facility] 2022-12-06 2022-12-06 Outpatient [facility] 124 [place] 00:00:00 00:00:00 bin [id number] [facility] 2022-12-06 2022-12-06 Outpatient [facility] 124 [place] 00:00:00 00:00:00 bin [id number] [facility] 2022-12-06 2022-12-06 Jose Abbott [facility] [place] - [id number] [place] 00:00:00 00:00:00 Yesica Aden MD: [id number] [facility] certified flex endoscope reprocessor US 59 [facility], [facility] [address], [facility] [place], [place] Program [id number] , Ph. 2022-11-25 2022-11-25 Outpatient Ferguson_Ro CTHOP [facility] 124 - [place] 00:00:00 00:00:00 bin [id number] [facility] 2022-11-24 2022-11-24 Outpatient Jeb_Litzy [facility] 124 - [place] 00:00:00 00:00:00 bin [id number] [facility] 2022-07-14 2022-07-14 Outpatient SFA SFA [id number] [place] 11:08:15 11:08:15 [id number] [place] 2022-04-20 2022-04-20 Outpatient SFA SFA [id number] [place] 10:40:09 10:40:09 [id number] [facility] [place] 2022-04-16 2022-04-16 Outpatient SFA SFA [id number] [place] 11:44:55 11:44:55 [id number] [facility] 2022-03-31 2022-03-31 Outpatient SFA SFA [id number] [place] 15:17:51 15:17:51 [id number] [facility] Results Test Description Test Time Test Comments Results Result Comments Source OCCULT BLD,FECAL,IMMUNOASSAY DIAG 2022-07-23 11:08:20 Test Item Value Reference Range Interpretation Comme nts OCCULT BLD, FECAL (test NEGATIVE NEGATIVE [facility] has important pathology staff code = 73321) changes effect clay 08/11/2022. New pathology staff will provide uninterrupted, excellent patient care and clinical co nsultation. See URL: [email or web address]. UNLESS OTHERWISE INDIC ATED, ALL TESTING PERFORMED AT [facility], [facility]. [address] [place], [place] CLIA: [id number], CAP: [id number]
[2023-02-05 18:30] LABS: Absolute Lymphocytes (CBC) 3.2 K/uL (0.7-4.9); Hematocrit 27.7 % (36.0-45.0); Lymphocytes % 35.8 % (15.3-44.8); MCV 99.7 fL (80-100); MPV 7.3 fL (7.6-11.3); Platelets 250 thou/uL (152-406); RBC Red Blood Cell Count 2.78 M/uL (3.86-4.86)
[2023-02-05] MEDS ORDERED: ONDANSETRON 4 MG/2 ML VIAL ONE ×2 (18:31→23:19)
[2023-02-05] MEDS ORDERED: MORPHINE 4 MG/ML SYR ONE ×3 (18:31→23:19)
[2023-02-05] MEDS ORDERED: NA CHLORIDE 0.9% 1,000 ML ONE (18:33)
[2023-02-05 18:45] LABS: Potassium 4.5 mEq/L (3.5-5.1)
--- NOTE | 2023-02-05 18:46 | RAD REPORT ---
EXAM DESCRIPTION: RAD - Pelvis - 02/05/2023 6:37 pm CLINICAL HISTORY: fall COMPARISON: <Comparisons> FINDINGS/IMPRESSION: No acute fracture. No malalignment. Mild acetabular and lower spine degenerativ e changes.
--- NOTE | 2023-02-05 18:47 | RAD REPORT ---
EXAM DESCRIPTION: RAD - Femur Left - 02/05/2023 6:37 pm CLINICAL HISTORY: PAIN COMPARISON: Pelvis dated 02/05/2023 FINDINGS/IMPRESSION: No acute fracture. Lipohemarthrosis at the knee. Reference tibia fibula radiogr aph.
--- NOTE | 2023-02-05 18:52 | RAD REPORT ---
EXAM DESCRIPTION: RAD - Tib Fib Left - 02/05/2023 6:38 pm CLINICAL HISTORY: PAIN COMPARISON: No comparisons FINDINGS/IMPRESSION: Bicondylar tibial plateau fracture with transverse component at the metaphysis (type 6). There is also a fracture involving the proximal fibular metaphysis with slight foreshorteni ng. Suggest dedicated left knee radiograph as the fracture is incompletely imaged on the lateral view . Alternatively, CT could better delineate for surgical planning.
--- NOTE | 2023-02-05 20:49 | RAD REPORT ---
EXAM DESCRIPTION: CT - [id number] - 02/05/2023 8:38 pm CLINICAL HISTORY: Trauma, head and neck injury. fall COMPARISON: No comparisons TECHNIQUE: Axial 5 mm thick images of the head were obtained. Axial 2 mm thick images of the cervical spine were obtained with sagittal and coronal reconstruction images generated and reviewed. All CT scans are performed using dose optimization technique as appropriate and may include automated exposure control or mA/KV adjustment according to patient size. FINDINGS: CT HEAD WITHOUT CONTRAST: No acute hemorrhage, hydrocephalus or extra-axial collection is identified.No areas of brain edema or midline shift. Mucoperiosteal thickening in the maxillary sinuses is chronic. The calvarium is intact. CT CERVICAL SPINE WITHOUT CONTRAST: No acute fracture. 5 mm of anteriolisthesis of C4 on C5. No prevertebral soft tissues swelling is lorenzo ntified. Varying degrees of neural foraminal narrowing noted at C4-5 and C5-6. Partially imaged 5 mm nodule in the left upper lobe. IMPRESSION: No acute intracranial or cervical spine findings. Partially imaged at least 5 mm nodule in the left upper lobe. Consider nonemergent chest CT for furth er evaluation.
--- NOTE | 2023-02-05 21:00 | RAD REPORT ---
EXAM DESCRIPTION: CT - Pelvis Wo Cont - 02/05/2023 8:52 pm CLINICAL HISTORY: fall COMPARISON: No comparisons FINDINGS: No pelvic fracture identified. Diverticulosis. No acute diverticulitis. No pelvic fracture s identified. Both hips are located. Atherosclerosis. IMPRESSION: No pelvic fracture identified.
--- NOTE | 2023-02-05 21:22 | RAD REPORT ---
EXAM DESCRIPTION: Eunice Ext Angio - 02/05/2023 8:53 pm CLINICAL HISTORY: knee dislocation, knee fracture COMPARISON: No comparisons TECHNIQUE: CTA of the lower extremity was performed. All CT scans are performed using dose optimization technique as appropriate and may include automated exposure control or mA/KV adjustment according to patient size. FINDINGS: Heavily calcified iliac arteries which are diffusely stenotic, probably mild to moderate. The arteries in the left lower extremity are intact. No evidence of a traumatic arterial injury ident ified. No evidence of active bleeding. Split type fracture of the medial and lateral tibial plateaus with transverse component at the metaph ysis. There is mild depression of the lateral tibial plateau along the posterior portion. Proximal fi bular fracture which is impacted and slightly displaced. IMPRESSION: 1. No arterial injury in the left lower extremity identified. 2. Comminuted type 6 tibial plateau fracture with bicondylar fractures and transversely oriented frac ture of the metaphysis.
--- NOTE | 2023-02-05 21:39 | ER ---
Nurse's Notes [facility] Name: Cuco Gomez Age: 62 yrs Sex: Female : 1960 Arrival Date: 02/05/2023 Time: 18:06 Bed 8 Private MD: Diagnosis: Type 6 Tibial Plateau fracture Presentation: 02/05 18:11 Chief complaint: EMS states: toned out to patient home for left knee pain. Pt reports ld1 twisting knee yesterday and is in severe pain. Coronavirus screen: At this time, the client does not indicate any symptoms associated with coronavirus-19. Ebola Screen: No symptoms or risks identified at this time. Initial Sepsis Screen: Does the patient meet any 2 criteria? No. Patient's initial sepsis screen is negative. Does the patient have a suspected source of infection? No. Patient's initial sepsis screen is negative. Risk Assessment: Do you want to hurt yourself or someone else? Patient reports no desire to harm self or others. Onset of symptoms was February 05, 2023. 18:11 Method Of Arrival: EMS: [facility] ld1 18:11 Acuity: NAVARRO 3 ld1 18:18 Care prior to arrival: Medication(s) given: Fentanyl 150mg. ld1 Triage Assessment: 18:12 General: Appears in no apparent distress. comfortable, Behavior is calm, cooperative, ld1 appropriate for age. Pain: Complains of pain in left knee Pain does not radiate. Pain currently is 8 out of 10 on a pain scale. Quality of pain is described as throbbing. EENT: No signs and/or symptoms were reported regarding the EENT system. Neuro: Level of Consciousness is awake, alert, obeys commands, Oriented to person, place, time, situation. Cardiovascular: Capillary refill < 3 seconds Patient's skin is warm and dry. Respiratory: Airway is patent Respiratory effort is even, unlabored. GI: Abdomen is flat, non-distended. : No signs and/or symptoms were reported regarding the genitourinary system. Derm: No signs and/or symptoms reported regarding the dermatologic system. Musculoskeletal: No signs and/or symptoms reported regarding the musculoskeletal system. Historical: - Allergies: 18:12 Latex, Natural Rubber; ld1 18:12 PENICILLINS; ld1 18:12 Tetanus Vaccines \T\ Toxoid; ld1 - PMHx: 18:12 Hypertensive disorder; ld1 - PSHx: 18:12 Appendectomy; Cholecystectomy; Total abdominal hysterectomy; ld1 - Immunization history:: Adult Immunizations up to date. - Social history:: Smoking status: Patient denies any tobacco usage or history of. Patient/guardian denies using alcohol. Screenin:13 [facility] ED Fall Risk Assessment (Adult) History of falling in the last 3 months, ld1 including since admission No falls in past 3 months (0 pts). Abuse screen: Denies threats or abuse. Denies injuries from another. Nutritional screening: No deficits noted. Tuberculosis screening: No symptoms or risk factors identified. Assessment: 18:13 Reassessment: See triage assessment. ld1 20:29 General: Appears in no apparent distress. comfortable, Behavior is calm, cooperative. lg3 Pain: Complains of pain in left leg and left knee Pain currently is 10 out of 10 on a pain scale. Neuro: No deficits noted. Blake Agitation-Sedation Scale (RASS): -1 Drowsy Level of Consciousness is obeys commands, Oriented to person, place, time, situation. Cardiovascular: No deficits noted. Denies chest pain, shortness of breath, Capillary refill < 3 seconds Clubbing of nail beds is absent JVD is absent Patient's skin is warm and dry. Respiratory: No deficits noted. Airway is patent Respiratory effort is even, unlabored, Respiratory pattern is regular, symmetrical. GI: No deficits noted. No signs and/or symptoms were reported involving the gastrointestinal system. : No deficits noted. No signs and/or symptoms were reported regarding the genitourinary system. EENT: No deficits noted. No signs and/or symptoms were reported regarding the EENT system. Derm: No deficits noted. No signs and/or symptoms reported regarding the dermatologic system. Skin is intact, is healthy with good turgor, Skin is dry, Skin is normal, Skin temperature is warm. Musculoskeletal: Circulation, motion, and sensation intact. Range of motion: limited in left knee Swelling present in left leg and left knee. 21:15 Reassessment: Patient appears in no apparent distress at this time. No changes from lg3 previously documented assessment. Patient and/or family updated on plan of care and expected duration. Pain level reassessed. Patient is alert, oriented x 3, equal unlabored respirations, skin warm/dry/pink. 23:17 Reassessment: Patient appears in no apparent distress at this time. No changes from lg3 previously documented assessment. Patient and/or family updated on plan of care and expected duration. Pain level reassessed. Patient is alert, oriented x 3, equal unlabored respirations, skin warm/dry/pink. Pain: Complains of pain in left leg. Vital Signs: 18:11 BP 162 / 96; Pulse 95; Resp 18; Temp 97.8(O); Pulse Ox 100% on R/A; Weight 57 kg; ld1 Height 5 ft. 1 in. ; Pain 8/10; 18:17 BP 119 / 56; ld1 20:29 BP 138 / 67; Pulse 80; Resp 17 S; Pulse Ox 99% on R/A; lg3 21:21 BP 145 / 77; Pulse 81; Resp 18 S; Pulse Ox 100% on R/A; jw7 23:17 BP 121 / 72; Pulse 76; Resp 17 S; Pulse Ox 99% on R/A; lg3 18:11 Body Mass Index 23.74 (57.00 kg, 154.94 cm) ld1 18:11 Pain Scale: Adult ld1 ED Course: 18:10 Patient arrived in ED. eb 18:12 Sudheer Lambert PA is PHCP. cp 18:12 Sudheer Gage MD is Attending Physician. cp 18:12 Triage completed. ld1 18:12 Arm band placed on right wrist. ld1 18:13 Sandra Selby, RN is Primary Nurse. ld1 18:13 Patient has correct armband on for positive identification. Placed in gown. Bed in low ld1 position. Call light in reach. Side rails up X2. ekg monitor tech on. Pulse ox on. NIBP on. Door closed. Noise minimized. Warm blanket given. 18:13 No provider procedures requiring assistance completed. ld1 18:24 CBC with Diff Sent. ld1 18:24 Basic Metabolic Panel Sent. ld1 18:25 Maintain EMS IV. Dressing intact. Good blood return noted. Site clean \T\ dry. Gauge \T\ ld 1 site: 18G LAC. 18:38 Pelvis XRAY In Process Unspecified. EDMS 18:38 XRAY Femur LEFT In Process Unspecified. EDMS 18:39 XRAY Tib Fib LEFT In Process Unspecified. EDMS 19:09 Jonathan Selby DO is Attending Physician. cp 20:29 Patient maintains SpO2 saturation greater than 95% on room air. lg3 20:39 CT Head C Spine In Process Unspecified. EDMS 20:54 CT Pelvis wo Cont In Process Unspecified. EDMS 20:55 Lower Ext Angio In Process Unspecified. EDMS 21:59 called [facility] transfer center spoke with divine. kj1 22:17 Urinalysis w/ reflexes Sent. jw7 22:[address] Osorio from the [facility]. kj1 23:25 Provided Education on: need for transfer. jw7 23:25 Patient transferred, IV remains in place. jw7 Administered Medications: 18:18 Drug: NS 0.9% IV 1000 ml Route: IV; Rate: 500 ml/hr; Site: left antecubital; ld1 21:46 Follow up: IV Status: Completed infusion; IV Intake: 1000ml lg3 18:24 Drug: morphine IVP or IV 4 mg Route: IVP; Infused Over: 4 mins; Site: left antecubital; ld1 20:34 Follow up: Response: No adverse reaction lg3 18:24 Drug: Ondansetron IVP 4 mg Route: IVP; Site: left antecubital; ld1 20:34 Follow up: Response: No adverse reaction lg3 20:34 Drug: morphine IVP or IV 4 mg Route: IVP; Infused Over: 4 mins; Site: left antecubital; lg3 23:16 Follow up: Response: No adverse reaction lg3 23:16 Drug: morphine IVP or IV 4 mg Route: IVP; Infused Over: 4 mins; Site: left antecubital; lg3 23:24 Follow up: Response: No adverse reaction; Marked relief of symptoms jw7 23:17 Drug: Ondansetron IVP 4 mg Route: IVP; Site: left antecubital; lg3 23:24 Follow up: Response: No adverse reaction jw7 Medication: 18:13 VIS not applicable for this client. ld1 Intake: 21:46 IV: 1000ml; Total: 1000ml. lg3 Outcome: 21:38 ER care complete, transfer ordered by . ms3 23:24 Transferred by ground EMS to [facility]. jw7 23:24 Condition: stable 23:24 Instructed on the need for transfer, Demonstrated understanding of instructions. 23:25 Patient left the ED. jw7 Signatures: Dispatcher [employer] EDMS Sudheer Lambert PA PA cp Botello, Elizabeth eb Jackson, Kandis kj1 Ivanna Byrd, RN RN lg3 Jonathan Selby DO DO ms3 Sandra Selby RN RN ld1 Sarah Peters RN RN jw7
--- NOTE | 2023-02-05 21:39 | EDPHYS ---
Physician Documentation [facility] Name: Cuco Gomez Age: 62 yrs Sex: Female : 1960 Arrival Date: 02/05/2023 Time: 18:06 Bed 8 Private MD: ED Physician Jonathan Selby HPI: 02/05 18:20 This 62 yrs old Female presents to ER via EMS with complaints of Fall. cp 18:20 The patient presents with decreased range of motion, an injury, swelling, tenderness. cp The complaints affect the left knee and left femur and left lower leg. Context: The problem was sustained at home, in bathroom, resulted from the patient falling, while walking, the patient is not able to bear weight, must have assistance. Onset: The symptoms/episode began/occurred yesterday. Associated signs and symptoms: Pertinent positives: head contusion, left hip pain. Historical: - Allergies: 18:12 Latex, Natural Rubber; ld1 18:12 PENICILLINS; ld1 18:12 Tetanus Vaccines \T\ Toxoid; ld1 - PMHx: 18:12 Hypertensive disorder; ld1 - PSHx: 18:12 Appendectomy; Cholecystectomy; Total abdominal hysterectomy; ld1 - Immunization history:: Adult Immunizations up to date. - Social history:: Smoking status: Patient denies any tobacco usage or history of. Patient/guardian denies using alcohol. ROS: 18:25 Constitutional: Negative for body aches, chills, fever, poor PO intake. cp 18:25 Eyes: Negative for injury, pain, redness, and discharge. cp 18:25 MS/extremity: Positive for pain, swelling, tenderness, of the left leg. 18:25 Cardiovascular: Negative for chest pain. cp 18:25 Respiratory: Negative for cough, shortness of breath, wheezing. 18:25 Neck: Negative for pain with movement, pain at rest, stiffness. cp 18:25 Abdomen/GI: Negative for abdominal pain, vomiting, diarrhea, constipation. 18:25 Neuro: Negative for altered mental status, loss of consciousness, syncope. 18:25 All other systems are negative. Exam: 18:30 Constitutional: The patient appears in no acute distress, alert, awake, cp non-diaphoretic, non-toxic, well developed, well nourished, uncomfortable. 18:30 Head/Face: Normocephalic, atraumatic. cp 18:30 Eyes: Periorbital structures: appear normal, Conjunctiva: normal, no exudate, no injection, Sclera: no appreciated abnormality, Lids and lashes: appear normal, bilaterally. 18:30 Neck: C-spine: vertebral tenderness, that is mild, appreciated at C5 and C6, crepitus, is not appreciated, ROM/movement: limited range of motion, is not appreciated, nuchal rigidity, is not appreciated. 18:30 Chest/axilla: Inspection: normal. 18:30 Cardiovascular: Rate: normal, Rhythm: regular, Edema: is not appreciated, JVD: is not appreciated. 18:30 Respiratory: the patient does not display signs of respiratory distress, Respirations: normal, no use of accessory muscles, no retractions, labored breathing, is not present, Breath sounds: are clear throughout, no decreased breath sounds, no stridor, no wheezing. 18:30 Abdomen/GI: Inspection: abdomen appears normal, Bowel sounds: active, all quadrants, Palpation: abdomen is soft and non-tender, in all quadrants. 18:30 Back: vertebral tenderness, is not appreciated. 18:30 Musculoskeletal/extremity: Extremities: grossly normal except: noted in the left leg: swelling, pain and tenderness of left knee, decreased passive ROM left knee. 18:30 Neuro: Orientation: to person, place \T\ time. Mentation: is normal, Motor: moves all cp fours, strength is normal, Sensation: no obvious gross deficits. Vital Signs: 18:11 BP 162 / 96; Pulse 95; Resp 18; Temp 97.8(O); Pulse Ox 100% on R/A; Weight 57 kg; ld1 Height 5 ft. 1 in. ; Pain 8/10; 18:17 BP 119 / 56; ld1 20:29 BP 138 / 67; Pulse 80; Resp 17 S; Pulse Ox 99% on R/A; lg3 21:21 BP 145 / 77; Pulse 81; Resp 18 S; Pulse Ox 100% on R/A; jw7 23:17 BP 121 / 72; Pulse 76; Resp 17 S; Pulse Ox 99% on R/A; lg3 18:11 Body Mass Index 23.74 (57.00 kg, 154.94 cm) ld1 18:11 Pain Scale: Adult ld1 MDM: 18:12 Patient medically screened. cp 20:30 Transition of care: After a detail discussion of the patient's case, care is cp transferred to Jonathan Selby DO. 20:30 Awaiting: CT scan results, waiting for transport. cp 21:38 ED course: Discussed case with Dr Norton and patient will need to be transferred.. ms3 22:15 ED course: Discussed case with Dr Medina and he agrees to see patient.. ms3 22:30 Differential diagnosis: dislocation, closed fracture, contusion. Data reviewed: vital ms3 signs, nurses notes, lab test result(s), radiologic studies, and as a result, I will transfer. Consideration of Admission/Observation Will transfer. Management of patient was discussed with the following: Hospitalist: Dr Brunner. I considered the following discharge prescriptions or medication management in the emergency department Medications were administered in the Emergency Department. See AUG. 02/05 18:16 Order name: Basic Metabolic Panel; Complete Time: 19:08 02/05 19:08 Interpretation: Normal except: BUN 26; CRE 1.53; GFR 38; CA 7.9. cp 02/05 18:16 Order name: CBC with Diff; Complete Time: 19:08 cp 02/05 19:09 Interpretation: Normal except: RBC 2.78; HGB 9.4; HCT 27.7; RDW 17.8; MPV 7.3. cp 02/05 18:16 Order name: Urinalysis w/ reflexes; Complete Time: 22:29 cp 02/05 18:16 Order name: Pelvis XRAY; Complete Time: 19:08 cp 02/05 18:16 Order name: XRAY Femur LEFT; Complete Time: 19:08 cp 02/05 18:16 Order name: XRAY Tib Fib LEFT; Complete Time: 19:08 cp 02/05 19:25 Order name: CT Head C Spine; Complete Time: 21:35 cp 02/05 19:25 Order name: CT Pelvis wo Cont; Complete Time: 21:35 cp 02/05 20:07 Order name: Lower Ext Angio; Complete Time: 21:35 EDMS 02/05 18:16 Order name: Labs collected and sent; Complete Time: 18:24 cp 02/05 19:08 Order name: Knee Immobilizer; Complete Time: 23:24 cp Administered Medications: 18:18 Drug: NS 0.9% IV 1000 ml Route: IV; Rate: 500 ml/hr; Site: left antecubital; ld1 21:46 Follow up: IV Status: Completed infusion; IV Intake: 1000ml lg3 18:24 Drug: morphine IVP or IV 4 mg Route: IVP; Infused Over: 4 mins; Site: left antecubital; ld1 20:34 Follow up: Response: No adverse reaction lg3 18:24 Drug: Ondansetron IVP 4 mg Route: IVP; Site: left antecubital; ld1 20:34 Follow up: Response: No adverse reaction lg3 20:34 Drug: morphine IVP or IV 4 mg Route: IVP; Infused Over: 4 mins; Site: left antecubital; lg3 23:16 Follow up: Response: No adverse reaction lg3 23:16 Drug: morphine IVP or IV 4 mg Route: IVP; Infused Over: 4 mins; Site: left antecubital; lg3 23:24 Follow up: Response: No adverse reaction; Marked relief of symptoms jw7 23:17 Drug: Ondansetron IVP 4 mg Route: IVP; Site: left antecubital; lg3 23:24 Follow up: Response: No adverse reaction jw7 Disposition: 02/06 00:46 Co-signature as Attending Physician, Jonathan Selby DO I was immediately available on-site ms3 in the Emergency Department for consultation in the care of the patient. Disposition Summary: 02/05/23 21:38 Transfer Ordered Transfer Location: [facility] ms3 Reason: Higher level of care ms3 Condition: Stable ms3 Problem: new ms3 Symptoms: are unchanged ms3 Accepting Physician: (02/05/23 23:25) jw7 Diagnosis - Type 6 Tibial Plateau fracture ms3 Forms: - Medication Reconciliation Form ms3 - SBAR form ms3 Signatures: Dispatcher [employer] EDMS Sudheer Lambert PA PA cp Jackson, Kandis kj1 Ivanna Byrd RN RN Jonathan Apple DO DO ms3 Sandra Selby RN RN ld1 Sarah Peters RN RN jw7 Corrections: (The following items were deleted from the chart) 02/05 20:07 19:25 Knee Left W Con ordered. EDMS EDMS 22:57 21:38 Dr luna3 kj1 23:25 22:57 Dr kj1 jw7
[2023-02-05 22:27] LABS: Specific Gravity 1.018 (1.005-1.030); Urine Bilirubin NEGATIVE (Negative); Urine Blood Negative (Negative); Urine Clarity Clear (Clear); Urine Color Colorless (Yellow); Urine Glucose NEGATIVE (Negative); Urine Protein NEGATIVE (Negative); Urine Urobilinogen Normal (Normal); Urine pH 6.5 (5.0-7.0)
[2023-02-05 23:29] VITALS: TEMP 97.8
[2023-02-05 23:36] VITALS: BP 121/72; O2SAT 99
== END 2023-02-05 23:25 | disposition short-term general hospital (02) ==
LOC: ER 18:06
DX: S82.142A Displaced bicondylar fracture of left tibia, initial encounter for closed fracture (principal); S00.83XA Contusion of other part of head, initial encounter; I10 Essential (primary) hypertension; Z88.0 Allergy status to penicillin; Z88.7 Allergy status to serum and vaccine; Z91.040 Latex allergy status
CPT/HCPCS: 96361; 85025; 80048; 36415; 81003; 70450; 72125; 72192; 73706; 72170; 73552; 73590; 96375; 96374; 99285; Q9967; J2405 ×2; J7030